=== PATIENT | male | born 1965 | race Caucasian/White ===

== ENCOUNTER 2019-09-26 11:12 | Emergency (ER) | payer OTHER, SELFPAY ==
[2019-09-26 11:30] VITALS: BP 178/88; PULSE 83; RESP 18; TEMP 36.7; O2SAT 99
--- NOTE | 2019-09-26 11:40 | ED.GENADULT ---
HPI - General Adult General Chief complaint: Unspecified Stated complaint: body aches Time Seen by Provider: 09/26/19 11:40 Source: patient and RN notes reviewed Mode of arrival: ambulatory Limitations: no limitations History of Present Illness HPI narrative: This is a 54 years old male presents to the office for an evaluation of generalize bodyache for two days. Associated with feeling run down, malaise, chills and headache; so he called off work. He tried Tylenol and cold medicine yesterday. Denies sick contact at work/home. Related Data Home Medications Medication Instructions Recorded Confirmed levothyroxine 300 mcg PO DAILY 09/26/19 09/26/19 telmisartan 40 mg DAILY 09/26/19 09/26/19 Allergies Allergy/AdvReac Type Severity Reaction Status Date / Time No Known Allergies Allergy Verified 09/26/19 11:36 Review of Systems Review of Systems: Narrative: CONSTITUTIONAL: Denies fever. Reports chills, sweats,fatigue EYES: Denies visual changes. Reports watery/itchy eyes ENT:. Reports a little sinus congestion/stuffy in the morning. Denies sore throat, otalgia. CARDIOVASCULAR: Denies chest pain, palpitation RESPIRATORY: Denies dyspnea, wheezing, cough GASTROINTESTINAL: Denies abdominal pain, nausea, vomiting, diarrhea. GENITOURINARY: Denies urinary symptoms SKIN: Denies rash MUSCULOSKELETAL: Reports generalize bodyache especially when he moves his neck; it feels more stiff/ache NEUROLOGIC: Denies lightheaded/headache PMFSH Past Medical History Medical History Body mass index (BMI) 40.0-44.9, adult (03/27/15) Essential hypertension with goal blood pressure less than 140/90 Mixed hyperlipidemia Other specified hypothyroidism Family History Family History Mother Family history of obesity Hypertension Father Hypertension Family history of chronic obstructive pulmonary disease Family history of diabetes mellitus in first degree relative Family history of lymphoma Family history of congestive heart failure Family history of heart disease in male family member before age 55 Other Diabetes mellitus Family history of arthritis Family history of cardiovascular disease Family history of malignant neoplasm Social History Social History Smoking status: Never smoker Second hand tobacco smoke exposure: No Alcohol intake: never Gender identity (if verbalized by the patient): Male Comments At time of signature, I agree with nursing past medical, surgical, social and family history. There is no relevant family history pertinent to the presenting complaint. Exam Narrative: Exam Narrative: GENERAL: This is a well-nourished, well-developed patient, in no apparent distress. HEAD: normocephalic, atraumatic. EYES: PERRL. EMOI. Sclera clear/white. Vision is grossly intact. EARS: External ears normal, auditory canals clear and without drainage, TMs normal without perforation. Hearing grossly intact. NOSE: External nose normal with no obvious nasal discharge, nares without redness, no rhinorrhea. THROAT: Mucous membranes moist, posterior pharynx clear. NECK: Neck supple, non-tender without lymphadenopathy, masses or thyromegaly. NO nuchal rigidity; ROM. CARDIOVASCULAR: Regular rate and rhythm without murmurs, gallops, or rubs. RESPIRATORY: Clear to auscultation. Breath sounds equal bilaterally. No wheezes, rales, or rhonchi. GASTROINTESTINAL: Abdomen soft, non-tender, nondistended. Bowel sounds are active. No hepato-splenomegaly, or palpable masses. No guarding. SKIN: warm, intact with no suspicious lesions or rash, good texture and turgor. NEURO: awake, alert, and oriented to person, place and time. There were no obvious focal neurologic abnormalities. Steady gait EXTREMITIES: Normal range of motion. No edema. BACK: Nontender without deformity
== END 2019-09-26 12:00 | disposition home or self-care (01) ==
PROVIDERS: Emergency Provider Nurse Practitioner; PCP Family Medicine
DX: R52 Pain, unspecified (principal); Z20.828 Contact with and (suspected) exposure to other viral communicable diseases; E78.2 Mixed hyperlipidemia; I10 Essential (primary) hypertension; E03.8 Other specified hypothyroidism
CPT/HCPCS: 99211; G0463

== ENCOUNTER 2021-10-21 15:14 | Observation (INO) | payer OTHER, SELFPAY ==
[2021-10-21] VITALS (28 sets, daily range): BP systolic 133–182; BP diastolic 74–120; PULSE 72–94; RESP 10–24; TEMP 36.3–36.8; O2SAT 91–98; BMI 42.0
--- NOTE | ~2021-10-21 | XR_ITS ---
EXAMINATION: XR chest 2V 10/21/2021 15:43 INDICATION: Left-sided chest pain PROCEDURE: 2 view chest COMPARISON: 04/27/2013 FINDINGS: The lungs are clear. The cardiomediastinal silhouette is within normal limits. There are no pleural effusions. There is no pneumothorax suspected. IMPRESSION: 1: NO ACUTE CARDIOPULMONARY DISEASE. Reviewed, dictated and finalized at location B.
--- NOTE | 2021-10-21 15:19 | ECG_ITS ---
Measurements Intervals [place] Rate: 87 P: 25 [place]: 136 QRS: -33 QRSD: 79 T: 48 QT: 369 QTc: 446 Interpretive Statements SINUS RHYTHM MARKED LEFT AXIS DEVIATION [QRS AXIS < -30] NO PREVIOUS ECG AVAILABLE FOR COMPARISON Electronically Signed On 10-21-2021 22:17:54 CDT by Robina Snow M.D.
[2021-10-21] MEDS: ASPIRIN 81 MG CHEWABLE TABLET 324 MG PO (15:57)
[2021-10-21 16:03] LABS: Basophils Absolute Auto 0.1 K/mm3 (0.0-0.1); Basophils Percent Auto 0.6 % (0.2-1.2); Eosinophils Absolute Auto 0.1 K/mm3 (0-0.3); Eosinophils Percent Auto 0.7 % (0-4.4); Hematocrit 44.6 % (42.0-52.0); Hemoglobin 15.2 g/dL (14.0-18.0); Immature Granulocyte Absolute 0.04 K/mm3 (0.00-0.031); Immature Granulocyte Percent A 0.4 % (0-0.5); Mean Corpuscular HGB Conc 34.1 g/dl (32-36); Monocytes Absolute Auto 0.9 K/mm3 (0.1-0.6); Monocytes Percent Auto 7.6 % (2.6-8.5); Neutrophils Absolute Auto 7.7 K/mm3 (1.3-6.7); Neutrophils Percent Auto 67.7 % (45.5-73.1); Platelet Count Result 257 k/mm3 (150-375); Red Cell Distribution Width 12.3 % (11.5-14.5); White Blood Count 11.3 K/mm3 (4.5-10.0)
[2021-10-21 16:14] LABS: Alanine Aminotransferase 29 U/L (6-50); Albumin Level 4.7 g/dL (3.5-5.1); Alkaline Phosphatase 71 U/L (38-126); Anion Gap 9 mmol/L (8-16); Aspartate Amino Transferase 27 U/L (17-59); Blood Urea Nitrogen 12 mg/dL (9-20); Calcium 6.5 mg/dL (8.4-10.2); Carbon Dioxide 26 mmol/L (22-30); Chloride 101 mmol/L (98-107); Estimated CRCL calculation 134 ml/min; Estimated Glomerular Filt Rate > 60; Glucose 110 mg/dL (65-110); Lipase 42 U/L (23-300); Potassium 3.3 mmol/L (3.4-5.0); Sodium 136 mmol/L (137-145)
[2021-10-21 16:15] LABS: INR 1.1; Partial Thromboplastin Time 31.9 SECONDS (22.3-36.8); Prothrombin Time 14.2 Seconds (11.1-14.7)
[2021-10-21 16:25] LABS: Troponin I < 0.012 ng/mL (0.000-0.034)
[2021-10-21] MEDS: CALCIUM GLUC 1,000 MG/NS 50 ML 1,000 MG/50 ML BAG 100 MG IVPB (17:51)
--- NOTE | 2021-10-21 18:29 | ED.CHESTPAIN ---
HPI - Chest Pain General Chief Complaint: Chest Pain Stated Complaint: chest pain Time Seen by Provider: 10/21/21 15:26 Source: patient Mode of arrival: ambulatory Limitations: no limitations History of Present Illness HPI narrative: 56-year-old with a history of hypertension history of hypertension, chronic low back pain here with complaints of left-sided chest pain radiating into his left arm. Patient states he was at his pain management clinic was about to get a steroid injection in his lower back was noticed to have high blood pressure, was also complaining left scapular and shoulder pain. Pain management doctor who was later referred to the ER. Patient states that he gets pain with deep breaths. Patient states for the past 3 days he has been sweating a lot. Denies any previous history of coronary artery disease. History of thyroidectomy MD complaint: chest pain Onset (ago): hour(s) (1) Timing of current episode: constant Pain location: left chest Pain radiation: left arm and left scapula Associated symptoms: diaphoresis Risk Factors Coronary artery disease risk factors: hypertension Thoracic aortic dissection risk factors: none Related Data Home Medications Medication Instructions Recorded Confirmed aspirin 81 mg chewable tablet 81 mg PO DAILY 08/26/20 08/26/20 levothyroxine 100 mcg tablet 250 mcg PO DAILY 08/26/20 08/26/20 omega-3 fatty acids 1,000 mg 1,000 mg PO DAILY 08/26/20 08/26/20 capsule (Fish Oil Concentrate) testosterone cypionate 100 mg/mL 100 mg IM ONCE 08/26/20 08/26/20 intramuscular oil (Depo-Testosterone) Allergies Allergy/AdvReac Type Severity Reaction Status Date / Time No Known Allergies Allergy Verified 09/26/19 11:36 Review of Systems Review of Systems: All systems reviewed & are unremarkable except as noted in HPI and below Constitutional: Constitutional: Reports no additional constitutional complaints Eyes: Eyes: Reports no additional eye complaints ENT: Reports system reviewed and no additional complaints, except as documented Cardiovascular: Cardiovascular: Reports as per HPI Respiratory: Respiratory: Reports as per HPI Gastrointestinal: Gastrointestinal: Reports no additional gastrointestinal complaints Musculoskeletal: Musculoskeletal: Reports as per HPI Integumentary/Breasts: Skin/Breast: Reports system reviewed and no additional complaints, except as docu [facility] Past Medical History Medical History (Updated 10/21/21 @ 18:51 by Cesar Elder MD) Body mass index (BMI) 40.0-44.9, adult (03/27/15) Essential hypertension with goal blood pressure less than 140/90 Mixed hyperlipidemia Other specified hypothyroidism Family History Family History Mother Family history of obesity Hypertension Father Hypertension Family history of chronic obstructive pulmonary disease Family history of diabetes mellitus in first degree relative Family history of lymphoma Family history of congestive heart failure Family history of heart disease in male family member before age 55 Other Diabetes mellitus Family history of arthritis Family history of cardiovascular disease Family history of malignant neoplasm Social History Social History Smoking status: Never smoker Second hand tobacco smoke exposure: No Alcohol intake: never Gender identity (if verbalized by the patient): Male Course Course Emergency Course: Patient still continues to have intermittent chest pain, informed him about his lab work, EKG. Will admit him to the hospital for rule out. Vital Signs Vital signs: Vital Signs Temperature 36.8 C 10/21/21 15:16 Pulse Rate 94 10/21/21 15:16 Respiratory Rate 18 10/21/21 15:16 Blood Pressure 179/93 H 10/21/21 15:16 Pulse Oximetry 98 10/21/21 15:16 Oxygen Delivery Room Air 10/21/21 15:16 Temperature 36.8 C 0
[2021-10-21 18:34] LABS: Troponin I < 0.012 ng/mL (0.000-0.034)
[2021-10-21] MEDS: hydrALAZINE HCL 20 MG/ML VIAL 10 MG IV PUSH (19:00)
[2021-10-21] MEDS: POTASSIUM CHLORIDE 20 MEQ TABLET 40 MEQ PO (20:18)
[2021-10-21] MEDS: SODIUM CHLORIDE 0.9% IV 1,000 ML 50 ML IV CONT (20:19)
[2021-10-21 22:19] LABS: Troponin I < 0.012 ng/mL (0.000-0.034)
--- NOTE | 2021-10-21 23:03 | ADMGEN ---
This patient, Daniel Hadley, was admitted to IMU Room 203-01 at 23.3. Patient/family oriented to hospital policies and general routines including ID bracelet, bed and alarms, visiting hours, pain management, procedures, bathroom and other care routines, personal items, smoking policy, room service/diet, and visiting hours. Information on how to activate the Rapid Response Team has been discussed. Patient/Family are encouraged to report perceived risks to care and to ask questions if they do not understand what they are told or what they should do.
[2021-10-22] VITALS: PULSE 82; RESP 20; O2SAT 97
[2021-10-22] MEDS: NITROGLYCERIN OINTMENT 1 INCH DOSE TRANSDERM (00:42)
[2021-10-22] MEDS: ACETAMINOPHEN 325 MG TABLET 650 MG PO (00:43)
[2021-10-22 02:00] VITALS: PULSE 69
[2021-10-22 04:00] VITALS: BP 111/53; PULSE 69; PULSE 74; RESP 20; TEMP 36.4; O2SAT 97
[2021-10-22 06:00] VITALS: PULSE 76
--- NOTE | 2021-10-22 06:42 | PM.SD2 ---
Same Day Admit/Disch: HPI History of Present Illness Chief complaint: chest pain, uncontrolled HTN Narrative: Daniel Hadley is a 56 year old male with a past medical history of morbid obesity, postoperative hypothyroidism, chronic pain, obstructive sleep apnea and essential hypertension who presented to the [facility] from [facility] with left posterior shoulder pain rating up to the left chest and uncontrolled blood pressure. Patient reported he went to the pain management clinic for pain injections in his low back. When he arrived at the clinic his blood pressures were 214/100s systolic. He reports that he takes his blood pressure meds at night and had taken them the night before. He states that his usual blood pressures are in the 150s over 80s at baseline. He does not have a blood pressure cuff at home to check his blood pressures. His last time he had his blood pressures checked with the primary care physician's office 2 weeks ago. At that time his blood pressures were in the 150s systolic per his usual. The patient reports that he has been having pain in his posterior left scapular muscles. He reports the pain feels muscular and like a tightness. The pain will travel up the back of his neck and over the last day or so as moved into his left pectoralis. He reports increased sensation of discomfort with deep breathing. He can not elicit the pain more so with position changes. He will occasionally have a sharper pain. The pain is reproducible to palpation of his left trapezius muscles. However, he was worried that he may be having heart pain as he has a family history of premature coronary artery disease in his father. He had noticed also over the last 3 days that he has been having some intermittent cold sweats when he is at rest. He does not really have any shortness of breath but does feel increased tightness in his muscles with taking a deep breath. He has not had any cough, congestion, fevers or chills. Denies any lower extremity swelling. He does have chronic pain in the right lower extremity and had recent surgeries within the last few months for tarsal tunnel release. He reports that when he followed up with primary care physician 2 weeks ago TSH was too low and his primary care doctor told him to decrease his levothyroxine down to 225 mcg. He had not decreased the dose because he had not picked up is new medications. He also has chronic hypocalcemia following a parathyroidectomy due to history of hypercalcemia. He is supposed be taking oral calcium supplements but does not like to do so because he cannot take them at the same time that he takes his thyroid meds. He wants to take all of his meds at the same time. He also started Ozempic 1 week ago for potential weight loss. He does have obstructive sleep apnea but is compliant with his CPAP. [facility] Past Medical History Medical History (Updated 10/22/21 @ 07:16 by Leidy Durham DO) Body mass index (BMI) 40.0-44.9, adult (03/27/15) Calcium kidney stones Essential hypertension with goal blood pressure less than 140/90 Hepatic steatosis Hypoparathyroidism after procedure Mixed hyperlipidemia Morbid obesity with BMI of 40.0-44.9, adult Obstructive sleep apnea on CPAP Post-surgical hypothyroidism Prediabetes Secondary male hypogonadism Vitamin D deficiency Surgical History Surgical History (Updated 10/22/21 @ 07:16 by Leidy Durham DO) H/O parathyroidectomy (11/2014) 3.5 glands removed due to primary hyperparathyroidism History of bilateral carpal tunnel release History of bilateral inguinal hernia repair History of umbilical hernia repair Hx laparoscopic cholecystectomy S/P complete thyroidectomy (11/2014) Tarsal tunnel syndrome of right side (~08/2021) With surgical repair Family History Family History Mother Hypertension Obesity Father , At age 67 Hypertension COPD (chronic obstruct
[2021-10-22 06:43] VITALS: BP 109/59
[2021-10-22 07:23] LABS: Alanine Aminotransferase 25 U/L (6-50); Albumin Level 4.1 g/dL (3.5-5.1); Alkaline Phosphatase 62 U/L (38-126); Anion Gap 10 mmol/L (8-16); Aspartate Amino Transferase 25 U/L (17-59); Bilirubin,Total 1.2 mg/dL (0.2-1.3); Blood Urea Nitrogen 13 mg/dL (9-20); Calcium 6.2 mg/dL (8.4-10.2); Carbon Dioxide 24 mmol/L (22-30); Chloride 102 mmol/L (98-107); Estimated CRCL calculation 134 ml/min; Estimated Glomerular Filt Rate > 60; Glucose 95 mg/dL (65-110); Potassium 3.7 mmol/L (3.4-5.0); Sodium 136 mmol/L (137-145)
[2021-10-22 07:55] VITALS: BP 115/68; PULSE 88; RESP 22; TEMP 37.1; O2SAT 96
--- NOTE | 2021-10-22 09:51 | PC.NURSE ---
No assessment done or medication given d/t discharge entered at beginning of shift at 0745.
== END 2021-10-22 09:44 | disposition home or self-care (01) ==
LOC: ANHED 18:51 → ANHIMU 23:28
PROVIDERS: Admitting Provider Student in an Organized Health Care Education/Training Program; Emergency Provider Family Medicine; PCP Family Medicine; Visit Provider Internal Medicine
DX: R07.89 Other chest pain (principal); S46.912A Strain of unspecified muscle, fascia and tendon at shoulder and upper arm level, left arm, initial encounter; E87.6 Hypokalemia; E83.51 Hypocalcemia; I10 Essential (primary) hypertension; M54.50 Low back pain, unspecified; G89.29 Other chronic pain; Z79.82 Long term (current) use of aspirin; E78.5 Hyperlipidemia, unspecified; E66.01 Morbid (severe) obesity due to excess calories; Z68.41 Body mass index [BMI] 40.0-44.9, adult; E03.9 Hypothyroidism, unspecified
CPT/HCPCS: 36415; 71046; 80053; 83690; 84484; 85025; 85610; 85730; 93005; 96361; 96365; 96375; 99285; A9270; G0378; J0360; J0610; J7030